=== PATIENT | female | born 1985 | race Hispanic/Latino ===

== ENCOUNTER 2017-01-03 05:49 | Inpatient (IN) ==
[2017-01-03 06:44] LABS: URINE CULTURE NEEDED? NO; URINE MICRO REVIEW NEEDED? NO; URINE SOURCE CLEAN CATCH
[2017-01-03 06:46] LABS: BASO% 0.1 % (0.0-0.8); EOS# 0.04 X1000 (0.0-0.7); EOS% 0.3 % (0.0-10.0); HEMATOCRIT 33.6 % (37.0-47.0); HEMOGLOBIN 10.6 g/dL (12.0-16.0); IMM GRAN# 0.02 X1000 (0.0-0.04); IMM GRAN% 0.2 % (0.0-0.5); LYMPH# 1.09 X1000 (1.2-3.4); LYMPH% 8.5 % (20.5-51.1); MANUAL DIFF NEEDED? NO; MCH 22.5 PG (27-31); MCHC 31.5 g/dL (33-37); MCV 71.2 FL (81-99); MONO# 0.75 X1000 (0.11-0.59); MONO% 5.9 % (1.7-9.3); MPV 10.4 FL (7.4-10.4); PLT 233 X1000 (130-400); RBC 4.72 XMIL (4.2-5.4)
[2017-01-03 06:55] LABS: BILIRUBIN URINE NEGATIVE (NEGATIVE); BLOOD URINE NEGATIVE (NEGATIVE); COLOR YELLOW; GLUCOSE URINE NEGATIVE (NEGATIVE); LEUKOCYTES URINE NEGATIVE (NEGATIVE); NITRITE URINE NEGATIVE (NEGATIVE); PH URINE 8.5; PROTEIN URINE 30 mg/dL (NEGATIVE); SP GRAVITY URINE 1.022; TURBIDITY URINE CLEAR (CLEAR); UROBILINOGEN URINE NORMAL (NORMAL)
[2017-01-03 06:56] LABS: AGAP 12; ALBUMIN 4.4 g/dL (3.5-5.0); ALKALINE PHOSPHATASE 50 U/L (32-104); AMYLASE 84 U/L (20-200); BUN 8 mg/dL (8-22); CALCIUM 9.5 mg/dL (8.8-10.2); CHLORIDE 103 mmol/L (98-107); COSMO 273; GOT 9 U/L (10-30); GPT 10 U/L (10-36); LIPASE 28 U/L (13-60); POTASSIUM 3.8 mmol/L (3.5-5.1); SODIUM 137 mmol/L (136-145); TCO2 22 mmol/L (25-35); TOTAL BILIRUBIN 0.32 mg/dL (0.20-1.00); TOTAL PROTEIN 7.8 g/dL (6.3-8.3)
[2017-01-03 06:56] LABS: UR EPITHELIAL CELLS <10 /HPF (<10); URINE BACTERIA NEGATIVE /HPF; URINE RBC <10 /HPF (<10); URINE WBC <10 /HPF (<10)
--- NOTE | 2017-01-03 08:50 | PROVIDER DOCUMENTATION ---
HPI-Abdominal Pain/GI Problem - General Chief Complaint: Abdominal Pain Stated Complaint: ABD PAIN Time Seen by Provider: 01/03/17 08:32 Source: patient Allergies/Adverse Reactions: Patient Allergies Allergy/AdvReac Type Severity Reaction Status Date / Time No Known Allergies Allergy Verified 01/03/17 06:01 Home Medications: Home Medication List Medication Instructions Recorded Confirmed Last Taken Type NK [No Home Medications] 01/03/17 01/03/17 Unknown History - History of Present Illness-ABD Nature of Presenting Problems: crampy lower abd pain, constant since 0. Nothing makes it better, worse. No radiation. Nausea, no vomiting, no dysuria, no change in BM. No fever. Never had before. Abdominal Pain Onset Location: reports: suprapubic Pain Radiation: reports: no radiation Quality of Pain: reports: cramping Severity in ED: reports: severe Onset/Duration: reports: last night Activities at Onset: reports: sleep Modifying Factors: improves with: nothing Associated Symptoms: reports: nausea. denies: diarrhea, fever/chills, vomiting Similar Symptoms Previously?: No Review of Systems - Adult - REVIEW OF SYSTEMS - ADULT Constitutional: reports: no symptoms reported Eyes: reports: no symptoms reported Ears, Nose, Mouth & Throat: reports: no symptoms reported Cardiovascular: reports: no symptoms reported Respiratory: reports: no symptoms reported Gastrointestinal: reports: see HPI, abdominal pain, nausea. denies: vomiting Genitourinary: reports: no symptoms reported Musculoskeletal: reports: back pain Integumentary: reports: no symptoms reported Neurological: reports: no symptoms reported Psychiatric: reports: no symptoms reported Endocrine: reports: no symptoms reported Hematologic/Lymphatic: reports: no symptoms reported Allergic/Immunologic: reports: no symptoms reported Past History - Adult - PAST MEDICAL HISTORY-ADULT Review of Records: reports: Medications Reviewed Major Childhood Illnesses: reports: denies history Cardiovascular: reports: denies history Respiratory: reports: denies history Gastrointestinal: reports: denies history Obstetrical/Gynecological: reports: denies history Genitourinary: reports: denies history Musculoskeletal: reports: denies history Neurological: reports: denies history Psychiatric: reports: denies history Endocrine/Immune: reports: denies history Other Conditions: reports: denies history - SOCIAL HISTORY Smoking: denies Physical Exam-General - PHYSICAL EXAM-ADULT Initial Vital Signs Reviewed: Yes - CONSTITUTIONAL General Appearance: appears well, alert, mild distress - EYES Eyes: PERRL/EOMI, pink conjunctivae - HEAD, EARS, NOSE, MOUTH & THROAT HENMT: normocephalic/atraumatic, moist mucous membranes, normal ENT inspection, pharynx normal - NECK Neck: non-tender, full range of motion, supple - RESPIRATORY Respiratory: lungs clear, normal breath sounds, no respiratory distress, no accessory muscle use - CARDIOVASCULAR Cardiovascular: regular rate, rhythm, no edema, no gallop, no murmur - GASTROINTESTINAL (ABDOMEN) Abdominal Exam: normal bowel sounds, soft, tenderness (mod, midline) - MUSCULOSKELETAL Back Exam: normal inspection, no CVA tenderness, no vertebral tenderness Extremity: normal range of motion, non-tender, normal inspection - SKIN Integumentary: normal color, normal turgor, warm/dry - NEUROLOGIC 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, grossly normal, no motor/sensory deficits - PSYCHIATRIC Psych/Mental Status: normal mood/affect, normal thought content, normal thought process, oriented x 3 Progress - PLAN OF CARE/RESULTS Progress/Plan/Lab Results: Vital Signs - 8 hr 01/03/17 05:54 01/03/17 07:27 Temperature 97.5 F L 97.8 F Pulse Rate 67 62 Respiratory Rate 18 18 Blood Pressure 105/66 106/69 O2 Sat by Pulse Oximetry 100 100 Bedside Urine ED: Urine Bedside Start: 01/03/17 06:00 Freq: ORDERED Status: Active Activity Type Activity Date Activity User E-Sign Co-Sign Detail Recorded Client Recorded Date Recorded By Document 01/03/17 06:39 [id number] 01/03/17 06:39 [id number] 01/03/17 06:39 Point of Care [Bedside Point of Care] -Lot # [id number] - Results Negative -Control Line Visible? Yes Laboratory Results - last 24 hr 01/03/17 01/03/17 01/03/17 05:58 05:58 06:39 WBC 12.81 H RBC 4.72 Hgb 10.6 L Hct 33.6 L MCV 71.2 L MCH 22.5 L MCHC 31.5 L RDW Std Deviation 17.4 H Plt Count 233 MPV 10.4 Immature Gran % (Auto) 0.2 Neut % (Auto) 85.0 H Lymph % (Auto) 8.5 L [place] % (Auto) 5.9 Eos % (Auto) 0.3 Baso % (Auto) 0.1 Immature Gran # (Auto) 0.02 Neut # (Auto) 10.90 H Lymph # (Auto) 1.09 L [place] # (Auto) 0.75 H Eos # (Auto) 0.04 Baso # (Auto) 0.01 Sodium 137 Potassium 3.8 Chloride 103 Carbon Dioxide 22 L Anion Gap 12 BUN 8 Creatinine 0.7 Estimated GFR/1.73 m2 > 60 BUN/Creatinine Ratio 11 Glucose 116 H Calculated Osmolality 273 Calcium 9.5 Total Bilirubin 0.32 AST 9 L ALT 10 Alkaline Phosphatase 50 Total Protein 7.8 Albumin 4.4 Globulin 3.4 Albumin/Globulin Ratio 1.3 Amylase 84 Lipase 28 Urine Source CLEAN CATCH Urine Color YELLOW Urine Turbidity CLEAR Urine pH 8.5 Ur Specific [place] 1.022 Urine Protein 30 A Ur Glucose (Stick) NEGATIVE Ur Ketones (Stick) NEGATIVE Urine Blood NEGATIVE Urine Nitrite NEGATIVE Urine Bilirubin NEGATIVE Urobilinogen Dipstick NORMAL Urine Leukocytes NEGATIVE Urine WBC (Auto) <10 Urine RBC (Auto) <10 U Epithel Cells (Auto) <10 Urine Bacteria (Auto) NEGATIVE Orders Category Date Time Status ED: Urine Bedside ORDERED Care 01/03/17 06:00 Active Saline Loc DIRECTED Care 01/03/17 05:56 Active NPO Diet 01/03/17 05:56 Active AMYLASE [CHEM] Stat Lab 01/03/17 05:58 Completed CBC WITH ELECTRONIC DIFF [HEME] Stat Lab 01/03/17 05:58 Completed COMPREHENSIVE METABOLIC PANEL [CHEM] Stat Lab 01/03/17 05:58 Completed LIPASE [CHEM] Stat Lab 01/03/17 05:58 Completed URINALYSIS W/POSS RFLX CULT-1 [URINALYSIS] Stat Lab 01/03/17 06:39 Completed Result Diagrams: 01/03/17 05:58 01/03/17 05:58 - ULTRASOUND (By Radiology) 1 US Study: Gallbladder Impression: Normal 2 US Study: Pelvic Impression: Normal US Results: small R ovarian cyst, both ovaries have NL Flow Departure - Departure Date of Disposition Decision: 01/03/17 Time of Disposition Decision: 11:55 DIAGNOSIS: Appendicitis Qualifiers: Appendicitis type: acute appendicitis Acute appendicitis type: other Qualified Code(s): K35.89 - Other acute appendicitis Disposition: ADMITTED INPATIENT 09 Certified Medical Emergency: Emergent Condition: Good Referrals and Follow-Ups: None,PCP [Primary Care Provider] - - Critical Care Note This patient required my direct & personal management of CC.: No
--- NOTE | 2017-01-03 10:13 | Diag Imaging Result Doc PS360 ---
EXAM: CT ABD/PELVIS W/ IV CONT ONLY HISTORY: mid abd pain TECHNIQUE: CT of the abdomen with intravenous contrast and dose reduction (clarity.) COMMENT: There are no previous studies available for comparison. There is minimal fibrosis or atelectasis in the posterior costophrenic sulcus on the right. There are small cysts present in the liver particularly in the left hepatic lobe and posteriorly in the right lobe. There is no evidence of hydronephrosis or mass in the kidneys. There is no evidence of abdominal aortic aneurysm. No significant adenopathy is present. There is no evidence of bowel obstruction. There is some stool present in the right colon. CT of the pelvis with intravenous contrast: There is fluid in the distal appendix which approaches 8 mm in diameter. The possibility of early appendicitis cannot be excluded. The appendix extends considerably to the midline from the cecum and down into the presacral region. There is what appears to be a corpus luteum cyst on the right measuring 1.8 cm in diameter. There is free fluid in the cul-de-sac. There is what appears to be a clip in the cul-de-sac on the right to. A similar a clip is present in the area of the uterine tube on the left. No acute bony abnormalities are demonstrated. IMPRESSION: Free pelvic fluid. Right corpus luteum cyst. The possibility of early appendicitis cannot be excluded on the basis of this study. Apparent loose surgical clip in the cul-de-sac. Electronically signed by Paolo Cornell 01/03/2017 10:11 AM
--- NOTE | 2017-01-03 11:46 | Diag Imaging Result Doc PS360 ---
EXAM: US GB < RUQ (LIMITED) INDICATION: abd pain COMPARISON: None. FINDINGS: The gallbladder appears normal with no stones, wall thickening, or pericholecystic fluid. The common bile duct is normal in diameter. Sonographic De La Fuente's sign was reported to be negative. The liver is grossly unremarkable. Portal venous flow is hepatopedal. The visualized pancreas is unremarkable. The aorta and IVC are grossly unremarkable. The right kidney is grossly unremarkable. IMPRESSION: Essentially unremarkable right upper quadrant abdominal ultrasound. Electronically signed by Ulices Tobias 01/03/2017 11:44 AM
--- NOTE | 2017-01-03 11:52 | Diag Imaging Result Doc PS360 ---
EXAM: US PELVIC NON-WINE CONSULTANT COMPLETE INDICATION: R/O ovarian torsion TECHNIQUE: COMPARISON: 12/26/2013 FINDINGS: The uterus is diffusely heterogeneous measuring up to 9.9 cm in the greatest dimensions. No discrete uterine mass is identified. The endometrium is thickened measuring up to 2 cm in thickness. There is potentially debris in the endometrial cavity. There is a 1.8 cm simple appearing right ovarian cyst. The ovaries are grossly normal in echotexture, otherwise. They both exhibit normal Doppler flow. The right ovary measures 3.5 cm and the left ovary measures 2.6 cm in the greatest dimensions. There is trace fluid layering in the cul-de-sac, usually physiologic. No discrete adnexal masses are appreciated. IMPRESSION: 1.Small right ovarian cyst. No sonographic evidence of ovarian torsion. 2.Somewhat heterogeneous uterus with a thickened endometrium and probably debris in the endometrial cavity. This could be related to cycle. Please correlate clinically. Electronically signed by Ulices Tobias 01/03/2017 11:50 AM
[2017-01-03] MEDS ORDERED: MORPHINE IV ONE (11:59)
[2017-01-03] MEDS ORDERED: ZOSYN 3.375 GM/NS 3.375 GM/50 ML IVPB IV ONE (11:59)
[2017-01-03] MEDS ORDERED: ZOFRAN IV ONE (11:59)
[2017-01-03] MEDS ORDERED: NS 1,000 ML IV ONE (12:08)
[2017-01-03] MEDS ORDERED: ZOFRAN IV PRN (12:08)
[2017-01-03] MEDS: LR 1,000 ML IV SCH ×2 (13:09→20:54)
--- NOTE | 2017-01-03 15:28 | HISTORY AND PHYSICAL ---
DATE OF ADMISSION: 01/03/2017 HISTORY OF PRESENT ILLNESS: This is a 31-year-old female who has had an approximately 12-24 hour history of abdominal pain prompting her presentation to the emergency department. Initially started periumbilical and it has become more localized in her lower midline and radiates around bilaterally. She states she was in her usual state of health yesterday morning. She has had some anorexia and some nausea, but otherwise normal bowel movements. No nausea or vomiting. No fevers. In the emergency department regarding her menstrual history, she says she has some irregularities of her menstrual cycles, but had a normal period 2 weeks ago. She does have a history of tubal ligation. In the emergency department, CT scan was obtained that showed a dilated appendix with some nonspecific fluid in the pelvis and right ovarian cyst with an enlarged endometrial cyst in her uterus possibly physiologic. MEDICAL HISTORY: Negative. SURGICAL HISTORY: She has had a tubal ligation. SOCIAL HISTORY: No tobacco, alcohol, or drugs. She is and has 3 children. FAMILY HISTORY: Negative for cancer. REVIEW OF SYSTEMS: Ten point negative, except for what is mentioned in her HPI. PHYSICAL EXAMINATION: Vital Signs: Temperature is 97.9, pulse 65, blood pressure 103/68, oxygen saturation 100% on room air. General: She is alert, in no acute distress. HEENT: No scleral icterus. I do not see any cervical scars or palpable masses. Cardiovascular: Normal rate. Regular rhythm. Pulmonary: No increased work of breathing. Abdomen: Soft. Some lower abdominal tenderness. I do not see any angella peritonitis. She is nondistended. There is no inguinal lymphadenopathy. Musculoskeletal exam: I see no muscle atrophy. Peripheral vascular exam: Her lower extremities are warm, well perfused without edema. Neurological: She is alert and oriented. LABS AND X-RAYS: White count is 12, hematocrit 33, platelets 233, creatinine 0.7, glucose 116. LFTs are normal. Amylase and lipase are normal. Urinalysis is overall normal. She does have 30 urine protein, but no nitrates, and urine test was negative upon arrival. CT scan of the abdomen and pelvis with p.o. and IV contrast shows free pelvic fluid, the right corpus luteal cyst, possibility of early appendicitis with appendix that measures 8 mm and is fluid filled. There is a 1.8 cm right corpus luteal cyst. Abdominal ultrasound shows normal gallbladder. Pelvic ultrasound shows a small right ovarian cyst and no evidence of ovarian torsion. Heterogeneous uterus with thickened endometrium, probably debris from the endometrial cavity. ASSESSMENT AND PLAN: This is a 31-year-old, female, who presents with lower abdominal pain acute onset, initially periumbilical now localized in the lower quadrant. Her appendix does drape across midline. I think this is abnormal and her CT scan is dilated and fluid filled. Although there is not a significant amount of stranding around this and there is also some nonspecific fluid in her pelvis, she also has ovarian cyst. I had a long discussion about these findings and that this could be pain related to her menstrual cycle. Urine test is negative. Somewhat concerned about an ectopic here in the setting of tubal ligation. I recommended diagnostic laparoscopy with appendectomy and other indicated procedures. Discussed risks of bleeding, infection, damage to other structures, and possibility of an abscess, especially perforated appendicitis is found. Depending on findings at the time of surgery, I will most likely recommend that she follow up with her financial services specialist in the future given these nonspecific findings of an ovarian cyst and endometrial thickening, but again I think in an otherwise premenopausal 31-year-old female with no other major CYTOPATHOLOGIST complaints, these are probably expected findings. cc: Sammi Burroughs MD
[2017-01-03] MEDS ORDERED: DIPRIVAN 1% ONE (16:47)
[2017-01-03] MEDS ORDERED: QUELICIN (DOSE) ONE (16:48)
[2017-01-03] MEDS ORDERED: XYLOCAINE-MPF 2% ONE (16:48)
[2017-01-03] MEDS ORDERED: ZEMURON ONE (16:48)
[2017-01-03] MEDS ORDERED: REGLAN ONE (17:08)
[2017-01-03] MEDS ORDERED: LR 1,000 ML ONE ×2 (17:08→19:29)
[2017-01-03] MEDS ORDERED: SENSORCAINE 0.25%/EPI 1:200,000 ONE (17:08)
[2017-01-03] MEDS ORDERED: PEPCID ONE (17:09)
[2017-01-03] MEDS ORDERED: FENTANYL ONE (17:59)
[2017-01-03] MEDS ORDERED: ROBINUL ONE ×2 (18:20→18:23)
[2017-01-03] MEDS ORDERED: NEOSTIGMINE ONE (18:23)
[2017-01-03] MEDS ORDERED: DECADRON ONE (18:25)
[2017-01-03] MEDS ORDERED: ZOFRAN ONE (18:25)
--- NOTE | 2017-01-03 19:28 | OPERATIVE NOTE ---
PROCEDURE DATE: 01/03/2017 PREOP DIAGNOSIS: Acute appendicitis. POSTOP: Acute appendicitis. PROCEDURE PERFORMED: Laparoscopic appendectomy. COMPLICATION: None. ESTIMATED BLOOD LOSS: 10 mL. ANESTHESIA: General. INDICATIONS: A 31-year-old female with 24 hour history of periumbilical pain that began to localize in the lower abdomen. CT scan showed a dilated fluid-filled appendix consistent with appendicitis. She had a leukocytosis. OPERATIVE FINDINGS: There was a early appearing appendicitis that was indurated and erythematous with some cloudy fluid in the pelvis but no evidence of angella perforation, her bilateral adnexal structures were normal, gallbladder is normal, liver was normal. There is no other abnormalities. OPERATIVE NOTE: Risks, benefits, alternatives discussed with patient, she consented the procedure. She was seen preoperatively and surgical procedure was confirmed. She was taken to the operating room, placed supine position. General anesthesia induced without complication. Scheduled antibiotics were confirmed. Abdomen is prepped chlorhexidine solution after a Stern catheter was placed and she was draped in usual fashion. Time-out was performed and periumbilical block made with local anesthetic. Curvilinear infraumbilical incision made and dissection carried down level of fascia, fascia was elevated with Jessica clamp at the umbilical stalk and incision along the midline was made entered in open controlled fashion and placed a 12 mm side trocar under direct visualization the abdomen with care to protect underlying structures, this done successfully. We then placed a 5 mm trocar suprapubic location level reflection the bladder and a 12 mm trocar left lower quadrant. Inspected abdomen with above findings. We then identified the appendix, it was not adherent to surrounding structures, created a hole in the mesoappendix at the base and using 30 mm gold load stapler divided the base the appendix. We then used a 2nd fire to divide the mesoappendix in its entirety. There was good closure of the stump and no bleeding noted from the arterial staple line. Placed in EndoCatch bag, irrigated the abdomen copious and suctioned till clear. Inspected again. Hemostasis was noted. I closed the left lower quadrant incision with a 0 Vicryl using a Mayo-Jagdeep device and deflated abdomen, brought the appendix out through umbilical incision, closed fascia interrupted 0 Vicryl sutures here. Skin was closed with 4-0 Monocryl in all locations subcuticular fashion, Dermabond was applied. Stern was removed. She has woken, transferred to PACU in good condition. I spoke with the family. Will watch her tonight. cc: Sammi Burroughs MD
[2017-01-03] MEDS: MORPHINE IV PRN (20:51)
[2017-01-03] MEDS: PERIDEX MT SCH (20:53)
[2017-01-04] MEDS: NORCO-7.5 PO PRN ×2 (02:35→09:24)
[2017-01-04] MEDS: MORPHINE IV PRN (04:36)
[2017-01-04] MEDS: LR 1,000 ML IV SCH (07:38)
[2017-01-04 08:02] VITALS: BP 103/66
[2017-01-04] MEDS: PERIDEX MT SCH (08:46)
== END 2017-01-04 10:54 | disposition home or self-care (01) ==
LOC: 4N 05:49 → ED 05:49 → OBSVTOIN 12:29
PROVIDERS: ADMIT Surgery; ATTEND Surgery